=== PATIENT | female | born 1945 | race Caucasian/White ===

== ENCOUNTER 2021-02-07 14:06 | Outpatient (CLI) | payer MEDICARE, SELFPAY ==
[2021-02-07 14:47] LABS: Basophils Percent Auto 0.5 % (0.2-1.2); Eosinophils Absolute Auto 0.2 K/mm3 (0-0.3); Eosinophils Percent Auto 2.2 % (0-4.4); Hematocrit 48.8 % (37.0-47.0); Hemoglobin 16.8 g/dL (12.0-15.0); Immature Granulocyte Absolute 0.03 K/mm3 (0.00-0.031); Immature Granulocyte Percent A 0.4 % (0-0.5); Lymphocytes Absolute Auto 2.72 K/mm3 (0.9-3.2); Lymphocytes Percent Auto 32.8 % (18.3-44.2); Mean Corpuscular HGB Conc 34.4 g/dl (32-36); Mean Corpuscular Hemoglobin 32.2 pg (26-34); Mean Corpuscular Volume 93.7 fl (80-100); Mean Platelet Volume 9.7 fl (7.4-10.4); Monocytes Absolute Auto 0.7 K/mm3 (0.1-0.6); Monocytes Percent Auto 8.1 % (2.6-8.5); Neutrophils Absolute Auto 4.7 K/mm3 (1.3-6.7); Platelet Count Result 184 k/mm3 (150-375); Red Blood Count 5.21 M/mm3 (4.2-5.4); White Blood Count 8.3 K/mm3 (4.5-10.0)
[2021-02-07 14:58] LABS: INR 0.9; Prothrombin Time 12.5 Seconds (11.1-14.7)
[2021-02-07 14:59] LABS: Partial Thromboplastin Time 35.8 SECONDS (22.3-36.8)
--- NOTE | 2021-02-07 15:00 | ECG_ITS ---
Measurements Intervals [place] Rate: 69 P: 44 [place]: 186 QRS: 25 QRSD: 90 T: 57 QT: 350 QTc: 376 Interpretive Statements SINUS RHYTHM DELAYED PRECORDIAL R/S TRANSITION BASELINE ARTIFACT- I, II, III, AVR, AVL, AVF, V6 BORDERLINE ECG Electronically Signed On 02-07-2021 14:41:08 CDT by Guanakito Larson D.O.
[2021-02-07 15:07] LABS: Alanine Aminotransferase 28 U/L (4-35); Albumin Level 4.4 g/dL (3.5-5.1); Alkaline Phosphatase 99 U/L (38-126); Anion Gap 7 mmol/L (8-16); Aspartate Amino Transferase 25 U/L (14-36); Bilirubin,Total 0.4 mg/dL (0.2-1.3); Blood Urea Nitrogen 25 mg/dL (7-17); Carbon Dioxide 29 mmol/L (22-30); Chloride 99 mmol/L (98-107); Estimated Glomerular Filt Rate 34; Glucose 102 mg/dL (65-105); Sodium 135 mmol/L (137-145)
== END 2021-02-07 14:07 | disposition home or self-care (01) ==
PROVIDERS: PCP Internal Medicine; Visit Provider Urology
DX: Z01.818 Encounter for other preprocedural examination (principal); N39.3 Stress incontinence (female) (male); I10 Essential (primary) hypertension
CPT/HCPCS: 36415; 80053; 85025; 85610; 85730; 86850; 86900; 86901; 87077; 87086; 87088; 87186; 93005

== ENCOUNTER → 2021-02-14 00:48 | Outpatient (CLI) | payer MEDICARE, SELFPAY ==
[2021-02-14 19:49] LABS: SARS-CoV-2 RNA PCR Negative
== END ==
PROVIDERS: PCP Internal Medicine; Visit Provider Urology
DX: Z01.812 Encounter for preprocedural laboratory examination (principal); Z20.822 Contact with and (suspected) exposure to COVID-19
CPT/HCPCS: C9803; U0003; U0005

== ENCOUNTER 2021-02-17 02:02 | Day surgery (SDC) | payer MEDICARE, SELFPAY ==
[2021-02-05 14:57] VITALS: BMI 25.4
--- NOTE | 2021-02-08 11:47 | PM.IMHP ---
H&P: HPI History of Present Illness Date/Time: 02/08/21 11:47 75-year-old non sexually active woman. She has significant uterine prolapse. She has stress incontinence. She had a D&C in April of 2020 documenting the absence of uterine pathology. Chief Complaint: uterine prolapse, stress incontinence Review of Systems Review of Systems: All systems reviewed & are unremarkable except as noted in HPI and below PMFSH Social History Social History Smoking status: Never smoker Second hand tobacco smoke exposure: No Alcohol intake: never Substance use: never Substance use type: does not use Spiritual care concerns: No Meds Home Medications and Allergies Home Medications Medication Instructions Recorded Confirmed Type aspirin [Aspir-81] 81 mg PO DAILY 02/05/21 02/05/21 History etodolac 400 mg QAM 02/05/21 02/05/21 History hydrochlorothiazide 25 mg QAM 02/05/21 02/05/21 History lisinopril 20 mg QAM 02/05/21 02/05/21 History metoprolol succinate 25 mg PO QAM 02/05/21 02/05/21 History Allergies Allergy/AdvReac Type Severity Reaction Status Date / Time No Known Allergies Allergy Verified 02/05/21 14:49 Exam Const: General: cooperative and healthy appearing HENMT: Head: normal to inspection Eyes: General: appearance normal, both eyes and all related structures Chest: Chest palpation & inspection: normal inspection of the chest Resp: Effort & Inspection: able to speak in complete sentences GI: Inspection: normal to inspection : Bimanual Exam- Adnexa, other: No apex supported and vaginal apex descent ( +5) Back/Spine/Pelvis: Back: no CVA tenderness Skin: General skin exam: normal color Neuro: General: patient oriented x3 Assessment and Plan Assessment and plan (1) Uterine prolapse: Code(s): N81.4 - Uterovaginal prolapse, unspecified Status: Acute Assessment and Plan: colpocleisis (2) BLANE (stress urinary incontinence, female): Code(s): N39.3 - Stress incontinence (female) (male) Status: Acute Assessment and Plan: urethral sling
[2021-02-17] VITALS (8 sets, daily range): BP systolic 121–151; BP diastolic 69–88; PULSE 67–83; RESP 12–18; TEMP 36.5–36.6; O2SAT 95–100
--- NOTE | 2021-02-17 07:17 | WPDHPUPDATE1 ---
History and Physical Update Update Date/Time: 02/17/21 07:17 History and Physical has been reviewed, including an updated exam of the patient. There are NO changes in the patient's condition. Risks, benefits, and alternatives have been discussed and questions answered. Patient agrees to proceed with procedure.
[2021-02-17] MEDS: LACTATED RINGERS 1,000 ML 30 ML IV CONT ×2 (13:07→16:13)
--- NOTE | 2021-02-17 13:50 | P.PNAN_ITS ---
Anes - Initial Pre Proc Eval Procedure: Operation Date: 02/17/21 14:15 Proposed Procedures p Colpocleisis - Fan Blair MD s Urethral Sling - Fan Blair MD Date/Time: 02/17/21 13:50 Surgeon: Fan Blair MD Pre Op Diagnosis: stress incontinence Patient Data Age: 75 Gender: F Height: 5 ft Weight: 57.5 kg Last Vital Signs Temp 36.5 C 02/17/21 12:08 Pulse 67 02/17/21 12:08 Resp 16 02/17/21 12:08 BP 151/82 H 02/17/21 12:08 Pulse Ox 100 02/17/21 12:08 Allergies Allergy/AdvReac Type Severity Reaction Status Date / Time No Known Allergies Allergy Verified 02/17/21 12:26 Home Medications Medication Instructions Recorded Confirmed Type aspirin [Aspir-81] 81 mg PO DAILY 02/05/21 02/17/21 History etodolac 400 mg QAM 02/05/21 02/17/21 History hydrochlorothiazide 25 mg QAM 02/05/21 02/17/21 History lisinopril 20 mg QAM 02/05/21 02/17/21 History metoprolol succinate 25 mg PO QAM 02/05/21 02/17/21 History Adult Probiotic 1 tablet PO DAILY 02/17/21 02/17/21 History Patient hx anesthesia problems: none Family hx anesthesia problems: none [facility] Social History Social History Smoking status: Never smoker Second hand tobacco smoke exposure: No Alcohol intake: never Substance use: never Substance use type: does not use Living arrangements: with family Spiritual care concerns: No Anes - Eval Final PreProcedure Day of Procedure 02/17/21 13:50 Patient weight: overweight Heart: regular rate and rhythm Lungs: clear to auscultation Airway: Mallampati scale class II Neurological: alert and oriented Last oral intake: >/= 8 hours ASA classification: II Emergent: no Anesthetic plan: proceed Anesthesia type and monitoring: general and standard monitoring Informed Consent: The patient's anesthetic plan and its attendant risks and benefits were discussed with the patient/family/POA. Questions were solicited and answers provided to the satisfaction of the patient/family/POA.
[2021-02-17] MEDS: ceFAZolin 2 GM/D5W 50 ML 2 GM/50 ML BAG IVPB (14:40)
[2021-02-17] MEDS: BUPIVACAINE/EPINEPHRINE 0.25% 50 ML VIAL 20 ML INFILTRATE (15:11)
--- NOTE | 2021-02-17 16:13 | P.OP_ITS ---
Procedure Note - Detailed Date of procedure: 02/17/21 Pre-op diagnosis: stress incontinence Uterine prolapse stress incontience Female perineal laxity Post-op diagnosis: same Procedure performed: Left [place] colpocleisis urethral sling perineoplasty cystoscopy Description of procedure: She understands the risks of bleeding, infection, damage to surrounding organs, damage to the urinary tract, postoperative voiding dysfunction including incontinence and retention, inability to have penetrative intercourse. She agrees to proceed She was correctly identified and informed consent obtained. She is by the operating room. She was given general anesthesia. She was placed in the dorsal lithotomy position. She was prepped and draped in a sterile fashion. She was given appropriate perioperative antibiotics. Time-out performed. The [place] retractors placed. A Alcazar catheter was placed. I yeison out 2 rectangular shaped areas on the anterior and posterior vaginal wall. I then tied the posterior vaginal wall. I removed the area of mucosa off the posterior vaginal wall. I then repeated this on the anterior vaginal wall. I took great care not to injure the underlying structures. I then performed a [place] colpocleisis. I left a drainage tunnels at the 3 and 9 o'clock position. I imbricated reduce the prolapse with 0 Vicryl sutures. I then closed the mucosa to mucosa with interrupted 0 Vicryl suture. There was excellent support of the prolapse. This resulted in excellent support of her prolapse. I then turned my attention towards the urethral sling. I anesthetized inner thigh incisions. I anesthetized the anterior vaginal wall over the mid urethra. I made a 1 cm incision. I dissected out laterally taking great care not to injure the recent vaginal grant. I passed the helical trocars. First on the left. Then on the right. From the thigh incision towards the vaginal incision. Sling was connected to the trocars and brought out through the thigh incision. I tensioned my sling appropriately. I cut and removed the plastic sheaths. I then closed the incision with 2 0 Vicryl. I cut the excess sling material. I closed the incisions with glue I then performed cystoscopy. The bladder was examined. There is no surgical artifact. There was no bladder tumors. Ureteral orifices were normal. The ureteral orifices were seen to excrete clear yellow urine. Patency was do cumented by passing a guidewire up the ureter. I then turned my attention towards the perineum. There is significant perineal laxity. I yeison out a lisa-shaped area of skin on the perineum. I removed this area skin after anesthetizing it. I then performed a perineoplasty with serial 0 Vicryl sutures. I then used a 2 Vicryl to close the mucosa leading to excellent perineal support. I assured hemostasis. The patient is awakened and transferred to the PACU in stable condition. Implants: None Anesthesia: GETA Surgeon: Fan Blair MD Drains: No Packing: No Pathology: none sent Complications: No immediate complications Condition: stable Disposition: PACU
--- NOTE | 2021-02-17 17:26 | PC.NURSE ---
This patient, Laurie Patrick, was received from PACU on 02/17/21 at 1726 per stretcher. Patient oriented to unit policies and routines
[2021-02-17] MEDS: KCL 20 MEQ/D5/0.45% SOD CHL 1,000 ML 100 ML IV CONT (17:50)
[2021-02-17] MEDS: HYDROcodone/acetaminophen (*CRX) 5-325 MG TABLET 1 TAB PO ×2 (19:16→23:58)
[2021-02-18] VITALS: BP 143/69; PULSE 68; RESP 16; TEMP 36.7; O2SAT 96
[2021-02-18] MEDS: HYDROcodone/acetaminophen (*CRX) 5-325 MG TABLET 1 TAB PO ×2 (05:07→09:05)
[2021-02-18 05:10] VITALS: BP 158/82; PULSE 60; RESP 16; TEMP 36.8; O2SAT 96
--- NOTE | 2021-02-18 07:36 | WPDANESPN ---
Anes - Prog Note Post-Op Date/Time: 02/18/21 07:36 Cardiovascular status: normal Respiratory status: normal Airway patency: baseline Mental status: baseline Post-Op hydration status: normal Vital Signs: Last Vital Signs Temp 36.8 C 02/18/21 05:10 Pulse 60 02/18/21 05:10 Resp 16 02/18/21 05:10 BP 158/82 H 02/18/21 05:10 Pulse Ox 96 02/18/21 05:10 Pain Score (VAS): 11/17 I/O: Intake & Output 02/17/21 02/17/21 02/18/21 15:59 23:59 07:59 Intake Total 50 400 450 Output Total 15 1150 Balance 50 385 -700 Post-procedural complaints: none Patient Feedback: Patient satisfied with anesthetic care.
[2021-02-18] MEDS: hydroCHLOROthiazide 25 MG TABLET BY MOUTH (07:44)
[2021-02-18] MEDS: lisinopriL 20 MG TABLET BY MOUTH (07:44)
[2021-02-18 07:45] VITALS: PULSE 76
[2021-02-18] MEDS: METOPROLOL SUCCINATE EXT REL 25 MG TABCR PO (07:45)
[2021-02-18] MEDS: DOCUSATE SODIUM 100 MG CAPSULE PO (07:46)
[2021-02-18 09:15] VITALS: BP 128/59; PULSE 53; RESP 18; TEMP 36.8; O2SAT 100
[2021-02-18 11:35] VITALS: BP 130/64; PULSE 59; RESP 16; TEMP 36.6; O2SAT 98
--- NOTE | 2021-02-18 16:11 | WPDUROPN2 ---
Progress Note: A&P Assessment and Plan (1) BLANE (stress urinary incontinence, female): Code(s): N39.3 - Stress incontinence (female) (male) Status: Acute Assessment and Plan: Ok to discharge home after last dose of antibiotics, follow up as planned. (2) Uterine prolapse: Code(s): N81.4 - Uterovaginal prolapse, unspecified Status: Acute Subjective Subjective Date/Time Seen: 02/18/21 16:11 POD #1 left [place] colpocleisis, urethral sling, perineoplasty, cystoscopy Patient doing very well today and urinating post braun removal. Review of Systems Respiratory: Respiratory: Reports no additional respiratory complaints Gastrointestinal: Gastrointestinal: Reports abdominal pain (at incision sites only), Denies nausea and Denies vomiting Genitourinary: Genitourinary: Denies hematuria, Denies dysuria, Denies pelvic pain and Denies urinary urgency Exam Resp: Effort & Inspection: normal respiratory effort GI: GI Palp: Yes Soft to palpation and Yes Tenderness to palpation present (GI) (incision sites only, no drainage/edema present, incision well approximated) : General: Yes no CVA tenderness Extrem: General: no edema Objective Data Vital Signs Vital Signs: Vital Signs - 24 hr 02/17/21 16:13 02/17/21 16:25 02/17/21 16:40 Temperature 97.8 F Pulse Rate 79 73 70 Respiratory Rate 12 12 12 Blood Pressure 121/73 148/73 H 129/77 Pulse Oximetry 100 100 100 02/17/21 16:55 02/17/21 17:10 02/17/21 17:30 Temperature 97.8 F 97.8 F Pulse Rate 70 73 75 Respiratory Rate 12 12 18 Blood Pressure 150/75 H 146/88 H 146/71 H Pulse Oximetry 100 97 98 02/17/21 19:20 02/18/21 00:00 02/18/21 05:10 Temperature 97.9 F 98.1 F 98.3 F Pulse Rate 83 68 60 Respiratory Rate 16 16 16 Blood Pressure 143/69 H 143/69 H 158/82 H Pulse Oximetry 95 96 96 02/18/21 07:45 02/18/21 09:15 02/18/21 11:35 Temperature 98.2 F 98 F Pulse Rate 76 53 L 59 L Respiratory Rate 18 16 Blood Pressure 128/59 L 130/64 Pulse Oximetry 100 98 Intake/Output Intake/Output: Intake & Output 02/15/21 02/16/21 02/17/21 02/18/21 23:59 23:59 23:59 23:59 Intake Total 450 550 Output Total 15 1550 Balance 435 -1000
== END 2021-02-18 15:15 | disposition home or self-care (01) ==
LOC: ANHSURGERY 16:19 → ANHOB2 17:19
PROVIDERS: PCP Internal Medicine; Visit Provider Urology
PROC: (CPT 57120; principal; 2021-02-17 14:15)
PROC: (CPT 57120; 2021-02-17 14:15)
DX: N39.3 Stress incontinence (female) (male) (principal); N81.4 Uterovaginal prolapse, unspecified; Z79.82 Long term (current) use of aspirin
CPT/HCPCS: 57120; 57288; 36415; 80053; 85025; 85610; 85730; 86850; 86900; 86901; 87077; 87086; 87088; 87186; 93005; 99199; A9270; C1758; C1769; C1771; C9803; J0690; J1100; J2405; J2704; J3010; J3480; J7030; J7120; U0003; U0005